=== PATIENT | female | born 1970 | race American Indian/Alaskan Native ===

== ENCOUNTER 2021-12-01 12:14 | Emergency (ER) | payer SELFPAY ==
[2021-12-01] MEDS ORDERED: SODIUM CHLORIDE 0.9% 1000 ML 1,000 ML IV ONE (15:03)
[2021-12-01] MEDS ORDERED: ASPIRIN 325 MG TAB PO ONE (15:03)
--- NOTE | 2021-12-01 15:03 | Emergency Department Report ---
<JANETH GARCIA - Last Filed: 12/01/21 17:06> ED Chest Pain HPI - General Chief Complaint: Chest Pain Stated Complaint: CHEST PAIN X1 WK PUI?: No Time Seen by Provider: 12/01/21 15:01 Source: patient Mode of arrival: Ambulatory Limitations: No Limitations - History of Present Illness Initial Comments: 51-year-old -[place] obese female with a past medical history of hypertension presents to the ER today with complaints of chest pain. Patient states that her pain started about a week ago. She states that the left-sided chest, and radiates into her left back. She states that has been intermittent in nature. She states that only thing that seems to make it worse is when she is under lots of stress, and when she is at rest and calm pain seemed to improve. She described it as a pressure/achy but it at times sharp pain. She states that she has had increased swelling to both lower extremities over the past 2 weeks but she reports no lower extremity or calf pain. Patient states th at she did have Covid earlier this month, and she has been short of breath since she has been diagnosed with Covid nothing worse in the past week since she started with the chest pain. She is not on oxygen at home. She is fully vaccinated against COVID-19. She does admit that she has been under a lot of stress at home. She has also been out of her blood pressure medications for about a couple of months. She states that she is not from here, she is originally from [place], but has not been able to return home due to family issues. She states that she has had onset uncles and grandparents who have had heart disease and strokes, but not her immediate family like her mom, dad, brothers or sisters. She states that she did have a nuclear stress test last year and it was normal. MD Complaint: chest pain -: week(s) (1) - Related Data Previous Rx's Medication Instructions Recorded Last Taken Type Losartan [Cozaar] 50 mg PO QDAY #30 tablet 12/01/21 Unknown Rx hydroCHLOROthiazide [Hctz] 12.5 mg PO QDAY #30 capsule 12/01/21 Unknown Rx Allergies Allergy/AdvReac Type Severity Reaction Status Date / Time No Known Allergies Allergy Unverified 12/01/21 15:37 Heart Score - HEART Score History: Slightly suspicious EKG: Normal Age: 45-65 Risk factors: > 3 risk factors or hx of atherosclerotic disease Troponin: < normal limit HEART Score: 3 - EKG Read Time Time EKG Completed: 14:46 EKG Read Time: 14:47 - Critical Actions Critical Actions: 0-3 pts:0.9-1.7%risk of adverse cardiac event.Candidate for discharge ED Review of Systems Comment: All other systems reviewed and negative Constitutional: denies: chills, fever Eyes: denies: eye pain, eye discharge, vision change ENT: denies: ear pain, throat pain Respiratory: shortness of breath. denies: cough, wheezing Cardiovascular: chest pain, edema Gastrointestinal: denies: abdominal pain, nausea, diarrhea, constipation, hematemesis, melena, hematochezia Genitourinary: denies: urgency, dysuria, frequency, hematuria, discharge, abnormal menses, dyspareunia Musculoskeletal: denies: back pain, joint swelling, arthralgia, myalgia Skin: denies: rash, lesions, change in color, change in hair/nails, pruritus Neurological: denies: headache, weakness, numbness, paresthesias, confusion, abnormal gait, vertigo Psychiatric: denies: anxiety, depression, auditory hallucinations, visual hallucinations, homicidal thoughts, suicidal thoughts Hematological/Lymphatic: denies: easy bleeding, easy bruising, swollen glands ED Past Medical Hx - Past Medical History Previous Medical History?: No - Surgical History Past Surgical History?: No - Medications Home Medications: Home Medications Medication Instructions Recorded Confirmed Last Taken Type Losartan [Cozaar] 50 mg PO QDAY #30 tablet 12/01/21 Unknown Rx hydroCHLOROthiazide [Hctz] 12.5 mg PO QDAY #30 capsule 12/01/21 Unknown Rx ED Physical Exam - General Limitations: No Limitations General appearance: alert, in no apparent distress, obese - Head Head exam: Present: atraumatic, normocephalic, normal inspection - Eye Eye exam: Present: normal appearance, PERRL, EOMI Pupils: Present: normal accommodation - Neck Neck exam: Present: normal inspection, full ROM. Absent: meningismus - Respiratory Respiratory exam: Present: normal lung sounds bilaterally. Absent: respiratory distress, wheezes, rales, rhonchi, chest wall tenderness - Cardiovascular Cardiovascular Exam: Present: regular rate, normal rhythm, normal heart sounds - GI/Abdominal GI/Abdominal exam: Present: soft. Absent: distended, tenderness, guarding, rebound - Extremities Exam Extremities exam: Present: normal capillary refill, pedal edema (non pitting bilateral LE ). Absent: full ROM, tenderness, joint swelling, calf tenderness - Neurological Exam Neurological exam: Present: alert, oriented X3, CN II-XII intact, normal gait - Psychiatric Psychiatric exam: Present: normal affect, normal mood - Skin Skin exam: Present: intact ED Medical Decision Making - Lab Data Result diagrams: 12/01/21 15:17 12/01/21 15:17 - EKG Data EKG shows normal: sinus rhythm Rate: normal (81) - EKG Data Interpretation: normal EKG - Radiology Data Radiology results: report reviewed Patient: CHUY BANKS MR#: [id number] : 1970 Acct:[id number] Age/Sex: 51 / F ADM Date: 12/01/21 Loc: ED Attending Dr: Ordering Physician: JANETH GARCIA Date of Service: 12/01/21 Procedure(s): XR chest routine 2V Accession Number(s): [id number] cc: JANETH GARCIA Fluoro Time In Minutes: CHEST 2 VIEWS INDICATION / CLINICAL INFORMATION: Chest Pain. COMPARISON: None available. FINDINGS: SUPPORT DEVICES: None. HEART / MEDIASTINUM: No significant abnormality. LUNGS / PLEURA: No significant pulmonary or pleural abnormality. No pneumothorax. ADDITIONAL FINDINGS: No significant additional findings. IMPRESSION: 1. No acute findings. Signer Name: Seven Velarde DO Signed: 12/01/2021 4:17 PM Workstation Name: [id number] Transcribed By: SHELLY Dictated By: SEVEN VELARDE DO Electronically Authenticated By: SEVEN VELARDE DO Signed Date/Time: 12/01/211616 DD/ 16 TD/TT: - Medical Decision Making The patient's care has been transferred to and accepted by[Caro GARCIA]. We discussed: The patient's chief complaints; labs and imaging that have been completed and those that are still pending; any treatment provided and the patient's response to treatment; the treatment plan prior to the transfer of care. The accepting provider will follow up on all pending labs and imaging and make any necessary changes to the current impression and/or treatment plan. The accepting physician/midlevel is now responsible for the patient's care and final disposition. ED Disposition Clinical Impression: Nonspecific chest pain, Stress and adjustment reaction, Uncontrolled hype rtension, Medication refill Disposition: HOME / SELF CARE / HOMELESS Is pt being admited?: No Does the pt Need Aspirin: No Condition: Stable Instructions: Generalized Anxiety Disorder, Adult, Nonspecific Chest Pain, Adult, Hypertension, Adult, [id number], Managing Your Hypertension, Hypertension (ED) Additional Instructions: I recommend getting your prescription filled and starting taking your BP medication daily as prescribed. You can take tylenol or motrin for pain. Follow up with PCP listed on your discharge instruction until you can make it back home to [place], to continue with refills on your meds and help with stress management. Return to ED if worse. Also recommend following up with an outpatient bale tie machine operator. Prescriptions: Losartan [Cozaar] 50 mg PO QDAY #30 tablet hydroCHLOROthiazide [Hctz] 12.5 mg PO QDAY #30 capsule Referrals: LEE GARCIA MD [Staff Physician] - 3-5 Days ARIANNA HERRERA MD [Staff Physician] - 3-5 Days <CARO CURTIS. - Last Filed: 12/01/21 21:26> ED Review of Systems ROS: Stated complaint: CHEST PAIN X1 WK Other details as noted in HPI ED Course Vital Signs 12/01/21 12/01/21 14:40 19:18 Temperature 98.3 F 97.6 F Pulse Rate 74 90 Respiratory 16 16 Rate Blood Pressure 190/116 115/88 [Left] O2 Sat by Pulse 100 98 Oximetry ED Medical Decision Making - Lab Data Result diagrams: 12/01/21 15:17 12/01/21 15:17 Lab Results 12/01/21 12/01/21 12/01/21 Range/Units 15:17 15:17 15:55 WBC 5.8 (4.5-11.0) K/mm3 RBC 4.70 (3.65-5.03) M/mm3 Hgb 14.2 (10.1-14.3) gm/dl Hct 42.9 (30.3-42.9) % MCV 91 (79-97) fl MCH 30 (28-32) pg MCHC 33 (30-34) % RDW 12.8 L (13.2-15.2) % Plt Count 266 (140-440) K/mm3 Lymph % (Auto) 26.7 (13.4-35.0) % [place] % (Auto) 10.7 H (0.0-7.3) % Eos % (Auto) 6.3 H (0.0-4.3) % Baso % (Auto) 0.5 (0.0-1.8) % Lymph # (Auto) 1.6 (1.2-5.4) K/mm3 [place] # (Auto) 0.6 (0.0-0.8) K/mm3 Eos # (Auto) 0.4 (0.0-0.4) K/mm3 Baso # (Auto) 0.0 (0.0-0.1) K/mm3 Seg Neutrophils % 55.8 (40.0-70.0) % Seg Neutrophils # 3.2 (1.8-7.7) K/mm3 D-Dimer 255.05 H (0-234) ng/mlDDU Sodium 140 (137-145) mmol/L Potassium 4.0 (3.6-5.0) mmol/L Chloride 103.9 (98-107) mmol/L Carbon Dioxide 25 (22-30) mmol/L Anion Gap 15 mmol/L BUN 10 (7-17) mg/dL Creatinine 0.9 (0.6-1.2) mg/dL Estimated GFR > 60 ml/min BUN/Creatinine Ratio 11 % Glucose 107 H (65-100) mg/dL Calcium 9.3 (8.4-10.2) mg/dL Total Bilirubin 0.60 (0.1-1.2) mg/dL AST 21 (5-40) units/L ALT 29 (7-56) units/L Alkaline Phosphatase 60 (35-129) units/L Troponin T < 0.010 (0.00-0.029) ng/mL Total Protein 7.2 (6.3-8.2) g/dL Albumin 4.6 (3.9-5) g/dL Albumin/Globulin Ratio 1.8 % Lipase 69 H (13-60) units/L 01/24/22 Range/Units 18:38 WBC (4.5-11.0) K/mm3 RBC (3.65-5.03) M/mm3 Hgb (10.1-14.3) gm/dl Hct (30.3-42.9) % MCV (79-97) fl MCH (28-32) pg MCHC (30-34) % RDW (13.2-15.2) % Plt Count (140-440) K/mm3 Lymph % (Auto) (13.4-35.0) % [place] % (Auto) (0.0-7.3) % Eos % (Auto) (0.0-4.3) % Baso % (Auto) (0.0-1.8) % Lymph # (Auto) (1.2-5.4) K/mm3 Willacy # (Auto) (0.0-0.8) K/mm3 Eos # (Auto) (0.0-0.4) K/mm3 Baso # (Auto) (0.0-0.1) K/mm3 Seg Neutrophils % (40.0-70.0) % Seg Neutrophils # (1.8-7.7) K/mm3 D-Dimer (0-234) ng/mlDDU Sodium (137-145) mmol/L Potassium (3.6-5.0) mmol/L Chloride (98-107) mmol/L Carbon Dioxide (22-30) mmol/L Anion Gap mmol/L BUN (7-17) mg/dL Creatinine (0.6-1.2) mg/dL Estimated GFR ml/min BUN/Creatinine Ratio % Glucose (65-100) mg/dL Calcium (8.4-10.2) mg/dL Total Bilirubin (0.1-1.2) mg/dL AST (5-40) units/L ALT (7-56) units/L Alkaline Phosphatase (35-129) units/L Troponin T < 0.010 (0.00-0.029) ng/mL Total Protein (6.3-8.2) g/dL Albumin (3.9-5) g/dL Albumin/Globulin Ratio % Lipase (13-60) units/L Vital Signs - 24 hr 12/01/21 12/01/21 14:40 19:18 Temperature 98.3 F 97.6 F Pulse Rate 74 90 Respiratory 16 16 Rate Blood Pressure 190/116 115/88 [Left] O2 Sat by Pulse 100 98 Oximetry - Radiology Data Ordering Physician: KAUSHIK HA Date of Service: 12/01/21 Procedure(s): CT angio chest Accession Number(s): [id number] cc: KAUSHIK HA CTA CHEST WITH CONTRAST INDICATION / CLINICAL INFORMATION: CP, SOB, elevated d-dimer. TECHNIQUE: Axial CT images were obtained through the chest after injection of 100 cc of Omnipaque 350 IV contrast. 3 plane MIP and/or 3D reconstructions were produced. All CT scans at this location are performed using CT dose reduction for ALARA by means of automated exposure control. COMPARISON: None available. FINDINGS: PULMONARY ARTERIES: No pulmonary emboli. THORACIC AORTA: No significant abnormality. HEART: No significant abnormality. CORONARY ARTERY CALCIFICATION: None. MEDIASTINUM / JOE: No significant abnormality. PLEURA: No pleural effusion. No pneumothorax. LUNGS: No acute air space or interstitial disease. ADDITIONAL FINDINGS: None. UPPER ABDOMEN: Incidentally noted 1.2 cm hypoattenuating lesion involving the left adrenal gland, likely representing a benign adrenal adenoma. SKELETAL STRUCTURES: Scattered degeneration. IMPRESSION: 1. No CT evidence for pulmonary embolism. 2. No acute findings. Signer Name: Seven Velarde DO Signed: 12/01/2021 6:33 PM Workstation Name: [id number] Transcribed By: SHELLY Dictated By: SEVEN VELARDE DO Electronically Authenticated By: SEVEN VELARDE DO Signed Date/Time: 12/01/211832 DD/ 29 TD/TT: - Medical Decision Making Troponin is negative x2. EKG without evidence of acute ischemia or infarction. Chest x-ray 1. No acute findings. CT angio chest 1. No CT evidence for pulmonary embolism. 2. No acute findings. Patient is currently asymptomatic. Heart score is 3, low risk for cardiac event. Patient's blood pressure significantly improved after p.o. medication given by JOSE Garcia. Patient given refill of medications. advised patient I recommend getting your presc ription filled and starting taking your BP medication daily as prescribed. You can take tylenol or motrin for pain. Follow up with PCP listed on your discharge instruction until you can make it back home to [place], to continue with refills on your meds and help with stress management. Return to ED if worse. Also recommend following up with an outpatient bale tie machine operator. Critical care attestation.: If time is entered above; I have spent that time in minutes in the direct care of this critically ill patient, excluding procedure time. ED Disposition Is pt being admited?: No Does the pt Need Aspirin: Yes
[2021-12-01] MEDS ORDERED: cloNIDine 0.2 MG TAB PO ONE (15:30)
[2021-12-01 15:50] LABS: Basophils % (Auto) 0.5 % (0.0-1.8); Eosinophils # (Auto) 0.4 K/mm3 (0.0-0.4); Eosinophils % (Auto) 6.3 % (0.0-4.3); Hematocrit 42.9 % (30.3-42.9); Hemoglobin 14.2 gm/dl (10.1-14.3); Lymphocytes # (Auto) 1.6 K/mm3 (1.2-5.4); Lymphocytes % (Auto) 26.7 % (13.4-35.0); Mean Corpuscular HGB Conc 33 % (30-34); Mean Corpuscular Volume 91 fl (79-97); Monocytes # (Auto) 0.6 K/mm3 (0.0-0.8); Monocytes % (Auto) 10.7 % (0.0-7.3); Platelet Count 266 K/mm3 (140-440); Red Cell Distribution Width 12.8 % (13.2-15.2)
[2021-12-01 16:16] LABS: Alanine Aminotransferase 29 units/L (7-56); Albumin 4.6 g/dL (3.9-5); BUN/Creatinine Ratio 11; Blood Urea Nitrogen 10 mg/dL (7-17); Calcium 9.3 mg/dL (8.4-10.2); Hemolysis Index 5
--- NOTE | 2021-12-01 16:24 | XRay Report ---
CHEST 2 VIEWS INDICATION / CLINICAL INFORMATION: Chest Pain. COMPARISON: None available. FINDINGS: SUPPORT DEVICES: None. HEART / MEDIASTINUM: No significant abnormality. LUNGS / PLEURA: No significant pulmonary or pleural abnormality. No pneumothorax. ADDITIONAL FINDINGS: No significant additional findings. IMPRESSION: 1. No acute findings. Signer Name: Seven Garcia DO Signed: 12/01/2021 4:17 PM Workstation Name: [id number]
[2021-12-01] MEDS ORDERED: ASPIRIN 325 MG TAB PO NR (17:00)
[2021-12-01] MEDS ORDERED: cloNIDine 0.2 MG TAB PO SCH (17:00)
--- NOTE | 2021-12-01 18:37 | Cat Scan Report ---
CTA CHEST WITH CONTRAST INDICATION / CLINICAL INFORMATION: CP, SOB, elevated d-dimer. TECHNIQUE: Axial CT images were obtained through the chest after injection of 100 cc of Omnipaque 350 IV contrast. 3 plane MIP and/or 3D reconstructions were produced. All CT scans at this location are performed using CT dose reduction for ALARA by means of automated exposure control. COMPARISON: None available. FINDINGS: PULMONARY ARTERIES: No pulmonary emboli. THORACIC AORTA: No significant abnormality. HEART: No significant abnormality. CORONARY ARTERY CALCIFICATION: None. MEDIASTINUM / JOE: No significant abnormality. PLEURA: No pleural effusion. No pneumothorax. LUNGS: No acute air space or interstitial disease. ADDITIONAL FINDINGS: None. UPPER ABDOMEN: Incidentally noted 1.2 cm hypoattenuating lesion involving the left adrenal gland, lik escobar representing a benign adrenal adenoma. SKELETAL STRUCTURES: Scattered degeneration. IMPRESSION: 1. No CT evidence for pulmonary embolism. 2. No acute findings. Signer Name: Seven Garcia DO Signed: 12/01/2021 6:33 PM Workstation Name: [id number]
[2021-12-01 19:28] VITALS: BP 115/88
--- NOTE | 2021-12-02 08:59 | Electrocardiograph Report ---
[facility] Test Date: 2021-12-01 Test Time: 14:46:58 Pat Name: CHUY BANKS Department: Room: Gender: F Line Welder: ROMINA : 1970 Requested By: JANETH GARCIA Order Number: [id number] Reading MD: Ashwin Callaway Measurements Intervals Mckenzie Rate: 81 P: 24 DC: 161 QRS: -2 QRSD: 80 T: 6 QT: 389 QTc: 451 Interpretive Statements Sinus rhythm No previous ECG available for comparison Electronically Signed On 12-02-2021 8:58:36 EST by Ashwin Callaway
== END 2021-12-01 19:28 | disposition home or self-care (01) ==
LOC: ED 12:14
DX: R07.9 Chest pain, unspecified (principal); Z73.3 Stress, not elsewhere classified; I10 Essential (primary) hypertension; Z76.0 Encounter for issue of repeat prescription
CPT/HCPCS: 36415; 71046; 71275; 80053; 83690; 84484; 85025; 85379; 93005; 93010; 96360; 99284; J7030; Q9967; Q0162